=== PATIENT | female | born 1990 | race Caucasian/White ===

== ENCOUNTER 2025-08-14 16:14 | Emergency (ER) | payer MEDICAID ==
[~2025-08-14] VITALS: Ht 157.5 cm; Wt 73.0 kg
[2025-08-14 16:26] VITALS: O2SAT 99
[2025-08-14 17:05] LABS: BASOPHILS % 0.5 % (0.0-2.0); EOSINOPHILS % 4.4 % (0.0-5.0); HEMATOCRIT. 38.8 % (36.0-48.0); HEMOGLOBIN. 13.1 g/dL (12.0-16.0); LYMPHOCYTES % 35.2 % (20.0-50.0); MEAN PLATELET VOLUME 7.4 fl (7.4-10.4); MONOCYTES % 6.6 % (2.0-8.0); NEUTROPHILS % 53.3 % (40.0-76.0); PLATELET 300 x1000/uL (130-400); RED BLOOD CELL COUNT 4.72 mill/uL (4.2-5.4); RED CELL DISTRIBUTION WIDTH 15.6 % (11.6-14.6)
[2025-08-14 17:17] LABS: CREATININE 0.8 mg/dL (0.6-1.0)
[2025-08-14 17:18] LABS: UREA NITROGEN BLOOD 10 mg/dL (9-23)
[2025-08-14 17:19] LABS: ASPARTATE AMINOTRANSFERASE 16 IU/L (<34)
[2025-08-14 17:20] LABS: BILIRUBIN DIRECT 0.1 mg/dL (<=3.0); BILIRUBIN TOTAL 0.5 mg/dL (0.1-1.0); PROTEIN TOTAL 7.3 g/dL (6.0-8.3)
[2025-08-14 17:25] LABS: HCG SCREEN POSITIVE
[2025-08-14 17:33] LABS: B-HCG QUANTITATIVE 12256 mIU/mL (<6)
[2025-08-14 19:09] LABS: CLARITY URINE CLOUDY (CLEAR); GLUCOSE URINE NEGATIVE (NEGATIVE); KETONES URINE NEGATIVE (NEGATIVE); LEUKOCYTE ESTERASE URINE NEGATIVE (NEGATIVE); NITRITE URINE NEGATIVE (NEGATIVE); OCCULT BLOOD URINE 3+ (NEGATIVE); PH URINE 7.0 (4.5-8.0); PROTEIN URINE NEGATIVE (NEGATIVE); SPECIFIC GRAVITY URINE 1.010 (1.005-1.030); UROBILINOGEN URINE 0.2 E.U./dL (0.2-1.0)
[2025-08-14 19:36] LABS: COLOR URINE STRAW (YELLOW)
[2025-08-14 19:40] VITALS: BP 137/79; PULSE 56; RESP 15; TEMP 36.6; O2SAT 98
[2025-08-14 19:43] LABS: WBC URINE 0-2 /hpf (0-2)
[2025-08-14 19:44] LABS: BACTERIA URINE TRACE; SQUAMOUS EPITHELIAL CELL URINE 2+ /lpf (RARE/1+)
== END 2025-08-14 19:45 | disposition home or self-care (01) ==
LOC: ER 16:14
DX: O46.8X1 Other antepartum hemorrhage, first trimester (principal); R10.20 Pelvic and perineal pain unspecified side; Z3A.09 9 weeks gestation of pregnancy
CPT/HCPCS: 36415; 76801; 80048; 80076; 81003; 84702; 84703; 85025; 86850; 86900; 99284